=== PATIENT | female | born 1980 | race Caucasian/White ===

== ENCOUNTER 2018-01-15 13:04 | Inpatient (IN) | payer OTHER ==
[~2018-01-15] VITALS: Ht 151.1 cm; Wt 69.4 kg
[2018-01-16] MEDS ORDERED: PNEU16DI2 (09:35)
[2018-01-16] MEDS ORDERED: PRENATABS FA T1 EACH PO (09:35)
== END 2018-01-16 10:52 | disposition home or self-care (01) | DRG 775 ==
LOC: LDR 13:04 → OB/GYN 17:48
PROC: 10E0XZZ Delivery of Products of Conception, External Approach (ICD-10-PCS; principal; 2018-01-15)
PROC: 4A1HXCZ Monitoring of Products of Conception, Cardiac Rate, External Approach (ICD-10-PCS; 2018-01-15)
DX: O36.4XX0 Maternal care for intrauterine death, not applicable or unspecified (principal); D61.89 Other specified aplastic anemias and other bone marrow failure syndromes; O41.1220 Chorioamnionitis, second trimester, not applicable or unspecified; O03.89 Complete or unspecified spontaneous abortion with other complications; O99.012 Anemia complicating pregnancy, second trimester; Z3A.15 15 weeks gestation of pregnancy; Z37.1 Single stillbirth

== ENCOUNTER 2024-06-16 13:57 | Emergency (ER) | payer OTHER ==
[~2024-06-16] VITALS: Ht 149.9 cm; Wt 76.2 kg
[~2024-06-16 13:57] MED LIST: PNEU16DI2; PRENATABS FA T1 EACH PO
[2024-06-16] MEDS ORDERED: KAPSPARGO SPRIN25 MG PO (14:03)
[2024-06-16] MEDS ORDERED: FAMOTIDINE/PF 20 MG/2 ML VIAL ONE (14:22)
[2024-06-16] MEDS ORDERED: 0.9 % SODIUM CHLORIDE 1,000 ML IV ONE (14:30)
[2024-06-16] MEDS ORDERED: FAMOtidine 10 MG/ML (4ML VIAL) IV ONE (14:30)
[2024-06-16 14:43] LABS: ABG PH 7.429 (7.35-7.45); ABG PO2 107.7 mmHg (80-100); ABG pCO2 38.2 mmHg (35-45); BASE EXCESS 0.6 mmol/l; BICARBONATE 24.8 mmol/l (23-25); SaO2 98.3 %; Tco2 25.9 mmol/l
[2024-06-16 15:05] LABS: HEMATOCRIT 36.6 % (36.0-45.00); MEAN CORPUSCULAR HEMOGLOBIN 31.1 pg (27.00-32.0); MEAN CORPUSCULAR HGB CONC 32.7 g/dl (32.0-36.0); RED BLOOD COUNT 3.85 M/uL (4.00-6.00); RED CELL DISTRIBUTION WIDTH 16.8 % (11.5-14.5)
[2024-06-16 15:17] LABS: PLATELET COUNT 87 K/uL (150-450)
[2024-06-16 15:21] LABS: ALBUMIN 3.5 gm/dL (3.4-5.0); BILIRUBIN TOTAL 0.39 mg/dL (0.3-1.2); CALCIUM 9.1 mg/dL (8.5-10.1); CREATININE SERUM 1.03 mg/dL (0.55-1.02); GFR 58.76; GLOBULINA 4.1 G/DL (2.4-3.5); POTASSIUM 3.78 mEq/L (3.5-5.1); TOTAL PROTEIN 7.6 gm/dL (6.4-8.2)
[2024-06-16 15:23] LABS: allen test SATISFACTORY; o2 21 %; puncture site RADIAL LEFT
[2024-06-16 15:58] LABS: URINE APPEARANCE Clear; URINE BILIRRUBIN Negative (NEGATIVE); URINE BLOOD Negative; URINE COLOR Yellow; URINE GLUCOSE Negative (NEGATIVE); URINE KETONE Negative (NEGATIVE); URINE LEUKOCYTE Trace; URINE NITRATE Negative; URINE PROTEIN Negative (NEGATIVE); URINE UROBILINOGEN 0.2 E.U./dl
[2024-06-16 16:01] LABS: URINE BACTERIA 1001.5 uL (0.0-1933); URINE EPITHELIAL CELLS 50.5 uL (0.0-38.8); URINE RBC 15.8 uL (0.0-20.8); URINE WBC 10.9 uL (0.0-23.2)
== END 2024-06-16 16:04 | disposition home or self-care (01) ==
LOC: ER 13:57
PROVIDERS: General Practice
DX: R07.89 Other chest pain (principal); Z88.8 Allergy status to other drugs, medicaments and biological substances